=== PATIENT | female | born 1960 | race American Indian/Alaskan Native ===

== ENCOUNTER → 2018-09-07 | Outpatient (CLI) | payer OTHER ==
--- NOTE | 2018-09-08 07:50 | REP ---
Clinical: Lung screening. History of nicotine dependence. Comparison: 09/05/2015 Technique: Axial low-dose noncontrast images from the thoracic inlet to the upper abdomen using lung screening technique. Findings: The lung gay are well-aerated. No consolidation, significant nodule or mass lesion is appreciated. 4 mm noncalcified nodule in the medial right lower lobe (image 35) remains stable. Small 3 mm subpleural nodule along the posterior right upper lobe (image 23) remains stable. No pleural effusion/reaction or pneumothorax. Tracheobronchial tree is patent. Mediastinum demonstrates mild atherosclerotic changes of the coronary arteries without cardiomegaly. Impression: Lung-RADS category II. No nodule or suspicious abnormality. Stable subpleural noncalcified nodules. Management recommendations include annual low-dose CT evaluation. Electronically Signed by Carlos Aguilar MD 09/08/2018 07:41 A
== END ==
LOC: M RAD 13:06
PROVIDERS: ATTEND Internal Medicine
DX: Z12.2 Encounter for screening for malignant neoplasm of respiratory organs (principal); Z87.891 Personal history of nicotine dependence; R91.8 Other nonspecific abnormal finding of lung field

== ENCOUNTER → 2020-05-01 | Outpatient (CLI) | payer OTHER ==
--- NOTE | 2020-05-02 07:46 | REP ---
INDICATION: HX OF SMOKING COMPARISON: 09/07/2018 TECHNIQUE: Axial noncontrast images from the thoracic inlet to the upper abdomen using low-dose lung screening technique (LDCT). FINDINGS: Mild emphysematous and chronic age-related interstitial changes are suggested without consolidation, pleural effusion, or pneumothorax. Few small stable subpleural nodules (right lower lobe image 19; medial left lower lobe image 33). No new suspicious nodule or mass lesion. IMPRESSION: Lung-RADS category 2. Stable benign appearing nodules unchanged. Management recommendations include annual low-dose CT evaluation. <Electronically signed by Carlos Aguilar > 05/02/20 0748
== END ==
LOC: M RAD 09:30
PROVIDERS: ATTEND Nurse Practitioner Primary Care
DX: J98.4 Other disorders of lung (principal)

== ENCOUNTER → 2021-03-13 | Outpatient (CLI) | payer OTHER ==
--- NOTE | 2021-03-13 13:04 | REPMRS ---
Patient History The patient states she has not had a clinical breast exam in over a year. No known family history of cancer. Patient states no breast complaints today. Patient has signed MRS History Sheet. Digital Woman Screen Mammo: March 13, 2021 - Exam #: [id number] Bilateral CC and MLO view(s) were taken. Technologist: Susanne Haney, Technologist Prior study comparison: September 01, 2018, bilateral digital mammo screening bilat, performed at [facility]. March 11, 2017, digital mammo diagnostic bilateral, performed at [facility]. March 03, 2017, bilateral digital mammo screening bilat, performed at [facility]. FINDINGS: There are scattered fibroglandular densities. Screening. Digital screening (2D) mammography was performed bilaterally in the CC and MLO projections. Additionally, breast tomosynthesis (3D mammography) was performed bilaterally in the CC and MLO projections. Todays exam was compared to the prior exam/exams. By history, the patient has no complaints of a palpable breast abnormality or other significant breast complaints. The Volpara volumetric breast density category is B, there are scattered areas of fibroglandular densities. The breasts are unchanged in size and shape. There are no pratima-soft tissue densities or spiculated masses. There is no internal architectural distortion. There are no suspicious pratima-calcific clusters. Skin thickening or nipple retraction is not present. IMPRESSION: BI-RADS Category 2- Benign Findings. There is no evidence of malignant alteration of the breasts. Followup examination recommended in one year. This mammogram was [facility],an FDA approved computer aided detection system for mammography. The lifetime Tyrer-Cuzick score is 6.3% Negative x-ray reports should not delay surgical consultation if a dominant or clinically suspicious mass is present. Not all breast cancers can be identified by mammography. Therefore, we recommend that you continue to perform regular breast self-examination and physical examination and then promptly contact your physician of any concerns or changes. Adenosis and dense breasts may obscure an underlying neoplasm. No significant changes when compared with prior studies. Assessment: BI-RADS/ACR category 2 mammogram. Benign Findings. Recommendation Routine screening mammogram of both breasts in 1 year. Electronically Signed By: Eulalio Hart MD 03/13/21 [id number]
== END ==
LOC: M WHC 12:19
PROVIDERS: ATTEND Family Medicine
DX: Z12.31 Encounter for screening mammogram for malignant neoplasm of breast (principal)

== ENCOUNTER → 2022-08-18 | Outpatient (CLI) | payer OTHER | LOC: M RAD 09:07 | PROVIDERS: ATTEND Nurse Practitioner Primary Care | DX: Z12.2 Encounter for screening for malignant neoplasm of respiratory organs (principal); Z87.891 Personal history of nicotine dependence ==

== ENCOUNTER → 2023-10-08 | Outpatient (CLI) | payer OTHER | LOC: M RAD 08:01 | PROVIDERS: ATTEND Nurse Practitioner Primary Care | DX: Z87.891 Personal history of nicotine dependence (principal) ==